=== PATIENT | female | born 1940 | race Caucasian/White ===

== ENCOUNTER → 2020-01-13 | Outpatient (CLI) | payer MEDICARE | END | disposition home or self-care (01) | LOC: CFH 11:16 | PROVIDERS: ATTEND Nurse Practitioner Family | DX: N63.23 Unspecified lump in the left breast, lower outer quadrant (principal); M85.88 Other specified disorders of bone density and structure, other site; R92.8 Other abnormal and inconclusive findings on diagnostic imaging of breast | CPT/HCPCS: 76642; 77066; 77080; G0279 ==

== ENCOUNTER 2020-02-04 09:34 | Outpatient (CLI) | payer MEDICARE ==
[2020-02-04] MEDS ORDERED: SODIUM BICARBONATE 4.2%, 5ML ONE (10:47)
[2020-02-04] MEDS ORDERED: LIDOCAINE 1%, 20ML ONE (10:47)
== END 2020-02-04 23:59 | disposition home or self-care (01) ==
LOC: CFH 09:34
PROVIDERS: ATTEND Nurse Practitioner Family
DX: N63.25 Unspecified lump in the left breast, overlapping quadrants (principal)
CPT/HCPCS: 19083; 88305; 77065